=== PATIENT | male | born 1990 | race Caucasian/White ===

== ENCOUNTER → 2017-01-19 | Outpatient (CLI) | payer MEDICAID | LOC: RT 09:29 | DX: I49.9 Cardiac arrhythmia, unspecified (principal); G47.33 Obstructive sleep apnea (adult) (pediatric) ==

== ENCOUNTER 2017-07-21 10:13 | Emergency (ER) | payer MEDICAID ==
[~2017-07-21] VITALS: Ht 177.8 cm; Wt 157.9 kg
[~2017-07-21 10:13] MED LIST: BROMFED DM COU118 ML PO; FLONASE 50 MCG16 GM; MEDROL 4MG. DOSE4 MG PO; ZITHROMAX Z PA250 MG PO
--- OUTSIDE RECORDS SUMMARY | 2017-07-21 10:19 | External Medical Summary Rpt | CCD ---
Author Author [employer] Organization [employer] Address Unknown Phone Unavailable Purpose Continuity of Care Document - through 2016
--- OUTSIDE RECORDS SUMMARY | 2017-07-21 10:19 | External Medical Summary Rpt | CCD ---
Author Author , LUZ ELENA LAGUNA Address Unknown Phone [email or web address] Purpose Continuity of Care Document - 02-02-2013 through 2016 Results Labs Lab Lab Date Result Refere Interp Status Commen Order Detail nces retati t Range on CBC WITH AUTO DIFF REFLEX (02-02-2013 10:46) EOSINOP -19-2 1.4 % 0.0-5.8 Normal complet HILS % 013 ed (AUTO) 10:46 MONOCYT 19-2 6.1 % 4.4-11. Normal complet ES % 013 0 ed (AUTO) 10:46 LYMPHOC 19-2 8.5 % 17.6-40 Below complet YTES % 013 .8 low ed (AUTO) 10:46 normal NEUTROP 19-2 81.1 % 43.1-74 Above complet HILS % 013 .8 high ed (AUTO) 10:46 normal Comment: If a manual differential is indicated, submit order within Comment: 48 hours" MEAN 02-02-2 7.1 fL 6.0-10. Normal complet PLATELE 013 0 ed T 10:46 VOLUME PLATELE 02-02-2 238 x10 130-400 Normal complet T COUNT 013 3 ed 10:46 RDW 02-02-2 13.1 % 11.5-14 Normal complet 013 .5 ed 10:46 MCHC -19-2 33.5 32-36 Normal complet 013 g/dL ed 10:46 MCH -19-2 28.8 pg 27-31 Normal complet 013 ed 10:46 MCV -19-2 86.0 fL 80-94 Normal complet 013 ed 10:46 HEMATOC 05-19-2 44.3 % 42.0-52 Normal complet RIT 013 .0 ed 10:46 HEMOGLO -19-2 14.9 14.0-18 Normal complet BIN 013 g/dL .0 ed 10:46 RED -19-2 5.16 X 4.70-6. Normal complet BLOOD 013 10 6 10 ed COUNT 10:46 WBC -19-2 12.8 X 4.8-10. Above complet (WHITE 013 10 3 8 high ed BLOOD 10:46 normal CELL) BASOPHI 05-19-2 0.1 X 0.0-0.2 Normal complet LS # 013 10 3 ed (AUTO) 10:46 EOSINOP 05-19-2 0.2 X 0.0-0.5 Normal complet HILS # 013 10 3 ed (AUTO) 10:46 MONOCYT -19-2 0.8 X 0.3-0.9 Normal complet ES # 013 10 3 ed (AUTO) 10:46 LYMPHOC -19-2 1.1 X 1.0-3.3 Normal complet YTES # 013 10 3 ed (AUTO) 10:46 NEUTROP 19-2 10.4 X 1.8-7.0 Above complet HILS # 013 10 3 high ed (AUTO) 10:46 normal BASOPHI 02-02-2 0.7 % 0-1.6 Normal complet LS % 013 ed (AUTO) 10:46 TROPONIN I (02-02-2013 10:46) TROPONI 02-02-2 <*0.30 0.00-0. Normal complet N I 013 ng/mL 30 ed 10:46 Comment: TNI Interpretive Text: <=0.3ng/mL is considered negative for Comment: Acute Myocardial Infarction (AMI).
--- OUTSIDE RECORDS SUMMARY | 2017-07-21 10:19 | External Medical Summary Rpt | CCD ---
Author Author , LUZ ELENA LAGUNA Address Unknown Phone [email or web address] Purpose Continuity of Care Document - 02-02-2013 [...]
--- OUTSIDE RECORDS SUMMARY | 2017-07-21 10:21 | External Medical Summary Rpt | CCD ---
Demographics Preferred Language Faroese Marital Status Unknown Episcopal Affiliation Unknown Race Unknown Ethnic Group Unknown Author Author , LUZ ELENA LAGUNA Address Unknown Phone luz Immunization Unable to retrieve immunization data due to connection failure with Immunization Registry. Please try again later.
--- OUTSIDE RECORDS SUMMARY | 2017-07-21 10:21 | External Medical Summary Rpt | CCD ---
Demographics Preferred Language Bulgarian Marital Status Unknown Episcopal Affiliation Unknown Race Unknown Ethnic Group Unknown Author Author , LUZ ELENA LAGUNA Address Unknown Phone luz Immunization Unable to retrieve immunization data due to connection failure with Immunization Registry. Please try again later.
--- OUTSIDE RECORDS SUMMARY | 2017-07-21 10:21 | External Medical Summary Rpt ---
Demographics Preferred Language Unknown Marital Status Unknown Mormon Affiliation Unknown Race Unknown Ethnic Group Unknown Author Author LUZ ELENA Hernandez, [employer] Organization [employer] Address Unknown Phone Unavailable
--- OUTSIDE RECORDS SUMMARY | 2017-07-21 10:21 | External Medical Summary Rpt ---
Demographics Preferred Language Unknown Marital Status Unknown Religion Affiliation Unknown Race Unknown Ethnic Group Unknown Author Author LUZ ELENA Hernandez, [employer] Organization [employer] Address Unknown Phone Unavailable
--- NOTE | 2017-07-21 11:09 | Urgent Treatment Center Report ---
History of Present Issue Date/Time Seen by Provider 07/21/17 1109 Visit Reason Pt arrived:Walked Presenting Problem:PT C/O COUGH X1 YEAR Location if Accident: Onset of symptoms date/time:/ or onset unknown for:MEDICAL HX UNKNOWN Have you (or family members/close friends) recently traveled outside the [place]? N If Yes, where/when: Have you had exposure to infectious disease within the past month? TB? Other? Specify: Patient state that he has had cough on and off for over a year State that he has seen his doctor several times for the cough State that he often gets bronchitis when the weather changes State that he noticed that he is getting a stuffy nose and blowing out dark yellow and it is draining down his throat so he knew he needed to come in and get checked before it got bad ALLERGIES Coded Allergies: Penicillins (03/19/17) Home Medications Active Scripts D-METHORPHAN HB/P-EPD HCL/BPM (Bromfed Dm Cough Syrup) 10 ML PO Q4HP PRN cough #150 SYR Prov: 03/19/17 Azithromycin (Zithromycin (Z-SHORTY) 250MG Tab) 250 MG PO DAILY #6 TAB Prov: 03/19/17 Methylprednisolone (Medrol Dose Shorty) 4 MG PO UD #1 SHORTY Prov: 03/19/17 Fluticasone Propionate (Flonase 50 Mcg Nasal [place]) 2 SPRAY NA DAILY #1 BOT Prov: 03/19/17 History Medical History General CAD? No Angina: No SC: No Hypertension? Yes Hyperlipidemia? No CHF? No DVT? No PE? No COPD? No Asthma? Yes Anemia? No GERD? No Gastric ulcers? No GI Bleed? No Hernia? No Thyroid Problems? No Hypothyroidism? No CVA? No Seizures? No Diabetes? No Renal Insuffiency? No UTI? No Stones? No BPH? No GB Disease: No Nephritic Syndrome? No Asplenia? No Hepatitis? No Sickle Cell Disease? No Arthritis? No Migraines? No Cataracts? No Glaucoma? No MRSA? No HIV? No TB? No Anxiety? No Depression? No Cancer? No More? Yes Additional hx: SLEEP APNEA Immunization HX DT/Tetanus 1-4 Years Ago Surgical Hx Previous Surgery?N Social History Smoking Hx Smoker: Never Smoker Tobacco: No Alcohol Alcohol: No Review of Systems All Other Systems Reviewed and Negative ENT nose discharge, nose congestion, throat pain. Respiratory cough Physical Exam Vital Signs Vital Signs Date Time Temp Pulse Resp B/P Pulse O2 O2 Flow FiO2 Ox Delivery Rate 07/21 1045 98.0 87 20 149/98 96 General Appearance normal appearance, WD/WN, no apparent distress Ear, Nose, Throat sinus pain/drainage, nasal congestion, Throat red, irritated, drianage noted tenderness maxillary sinuses Respiratory Status Yes: trachea midline, chest symmetrical, non tender chest. No: respiratory distress. Lung Sounds bilateral: normal breath sounds, lungs clear. Cardiovascular normal exam, regular rate/rhythm, no peripheral edema Neurologic alert, normal exam, oriented x 3 Medical Decision Making LABS/Meds/Orders Pt receiving controlled substance in ED? No Departure Departure Time of Disposition 1118 Disposition DC Home or Self Care(routine) Clinical Impression Primary Impression: Upper respiratory infection Qualifiers: URI type: unspecified URI Qualified Code: J06.9 - Acute upper respiratory infection, unspecified Condition STABLE Referrals AMALIA WAY APRN (Family) Patient Instructions Cough, DI for Cough -- Adult, DI for Nasal Congestion Additional Instructions * Monitor Temp. Tylenol and/or Ibuprofen as needed. ER if fever is no less than 101 despite alternating Tylenol and Ibuprofen * Encourage fluids, water, Gatorade, powerade, pedialyte if infant/toddler/or child * Warm salt water gargles for throat irritation *Warm fluids *Sore throat lozenges *Sleep elevated *humidifier or vaporizer Lots of rest Increase fluids, water, Gatorade, powerade *Flonase 2 sprays each nostril daily but may take 2-3 days to notice improvement with it Follow up IMMEDIATELY for new or worsening of symptoms OR no noticeable improvement over the next 48-72 hours. 911 immediately for any life threatening symptoms such as chest pain or difficulty breathing Discharge Counseling Counseled pt/family regarding diagnosis, medications/RX, home care, follow up needs Prescriptions Current Visit Scripts Azithromycin (Zithromycin (Z-SHORTY) 250MG Tab) 250 MG PO DAILY #6 TAB TAKE TWO (2) TABLETS ON DAY 1, THEN ONE (1) TABLET DAY #2 THRU #5 Methylprednisolone (Medrol Dose Shorty) 4 MG PO UD #1 SHORTY TAKE DIRECTED ON PACKAGING Fluticasone Propionate (Flonase 50 Mcg Nasal [place]) 1 SPRAY NA BID #1 BOT Benzonatate (Tessalon Perle) 100 MG PO TID #15 SGL at 1122
[2017-07-21] MEDS ORDERED: TESSALON PERLE100 M1 PO (11:21)
[2017-07-21] MEDS ORDERED: MEDROL 4MG. DOSE4 MG PO (11:21)
[2017-07-21] MEDS ORDERED: FLONASE 50 MCG16 GM (11:21)
[2017-07-21] MEDS ORDERED: ZITHROMAX Z PA250 MG PO (11:21)
[2017-07-21 11:24] VITALS: BP 149/98
== END 2017-07-21 11:32 | disposition home or self-care (01) ==
LOC: UTC 10:13
DX: J06.9 Acute upper respiratory infection, unspecified (principal); J45.909 Unspecified asthma, uncomplicated; I10 Essential (primary) hypertension; Z88.0 Allergy status to penicillin

== ENCOUNTER → 2017-08-03 | Outpatient (CLI) | payer MEDICAID ==
[~2017-08-03] MED LIST changes: +TESSALON PERLE100 M1 PO
--- NOTE | 2017-08-04 08:40 | RADIOLOGY REPORT PS360 ---
CHEST(2 VIEWS-NOT PORTABLE) Ordering physician: AMALIA WAY APRN Age: 26 years Male INDICATION: chest symptomsCHRONIC COUGH patient failed breathing chest. PROCEDURE: CHEST(2 VIEWS-NOT PORTABLE) FINDINGS: No prior studies Lungs well expanded and clear with nothing definitely acute. Upper normal markings at right infrahilar region but considered within normal limits. No pneumothorax. No pleural effusion. Heart normal size. Normal pulmonary vascularity. Hilar & mediastinal structures appear satisfactory. Chest wall unremarkable.. IMPRESSION ----- Lungs clear No active cardiopulmonary disease evident Nothing definitely acute
== END ==
LOC: RAD 10:17
DX: R05 Cough (principal)